=== PATIENT | female | born 2000 | race Caucasian/White ===

== ENCOUNTER 2024-05-18 05:01 | Inpatient (IN) | payer OTHER, SELFPAY ==
[2024-05-18] VITALS (70 sets, daily range): BP systolic 103–145; BP diastolic 52–72; PULSE 78–112; RESP 16–18; TEMP 36.7–37.7; O2SAT 84–100; BMI 34.2
[2024-05-18] MEDS: Lactated Ringers 1,000 ML 999 ML IV (05:20)
[2024-05-18 05:26] LABS: Absolute Lymphocyte Count 1.25 X10^3/uL (0.83-4.51); Absolute Neutrophil Count 16.8 X10^3/uL (2.0-7.7); Basophil# 0.07 X10^3/uL; Basophil% 0.4 % (0-1); Eosinophil# 0.02 X10^3/uL; Eosinophils% 0.1 % (0-5); Hematocrit 34.9 % (37-47); Hemoglobin 12.4 g/dL (12.0-15.0); Lymphocyte # 1.25 X10^3/ul (0.83-4.51); Lymphocyte % 6.3 % (19-41); Mean Corp Hgb Conc 35.5 g/dL (32-36); Mean Corpuscular Hgb 32.1 pg (27.0-32.0); Mean Corpuscular Volume 90.4 fL (81-99); Monocyte% 7.1 % (0-10); NRBC Flagged by Analyzer 0 % (0-5); Neutrophil # 16.84 X10^3/uL (2.7-7.7); Neutrophil % 84.9 % (47-70); Platelet Count 274 K/mm3 (150-450); RBC Distribution Width CV 13.2 % (11.6-14.6); Red Blood Count 3.86 M/mm3 (4.2-5.4); White Blood Count 19.8 K/mm3 (4.4-11.0)
--- NOTE | 2024-05-18 05:38 | PCM.HP.OB ---
HPI - General General Date of Admission: 05/18/24 Date of Service: 05/18/24 Chief Complaint: labor HPI Narrative ALAN CASTANEDA, is a 23 F who presents from home with track laying machine operator. Patient reports with 1 prior miscarriage. She is 41+ week gestational age based off of certain LMP. She states she started having ctx's about 2 days ago. Intact and no SROM. No bleeding. She offers no complaints other than ctx's. Her track laying machine operator is with her and states the patient was too uncomfortable at home, and the progress seemed to be slow. The track laying machine operator states she brought the patient in for an epidural and Pitocin. She felt the patient was 8 cm at home. PFSH PFSH Medical History no medical history Home Medications ?Medication ?Instructions ?Recorded ?Last Taken ?Type vit no.95-ferrous 1 tab PO DAILY 05/18/24 05/16/24 History fumarate 28 mg-folic acid 800 mcg tablet () Allergy/AdvReac Type Severity Reaction Status Date / Time No Known Allergies Allergy Verified 05/18/24 05:23 Social History Smoking Status: Former smoker History Elective abortions Hx Para 0 Spontaneous abortions Hx # Term Pregnancies Ectopic pregnancies Hx # Pregnancies Multiple births # of living children Addt'l History: Patient had care with a track laying machine operator. She had anemia screening. A blood glucose of 106. She had an ultrasound done at 23 week gestation in [place] and per the patient it was normal, but no record of this is seen. Her BP's were normal at visits up until her 41 week visit, and at that time SBP 140's. Unclear labor progress at home as record states patient was 8-9 cm at home before arrival, and patient is 7 cm on admission. NST FHR Rate Baby A Baseline: 130 Variability:: Moderate Accelerations:: 15 x 15 Decelerations:: None NST Reactive:: Yes FHR Category:: Category I Uterine Activity:: ctx q 2-4 min Vital Signs Vital Signs Vital Signs: 05/18/24 04:54 05/18/24 04:54 05/18/24 04:59 Temperature Temperature Source Pulse Rate 89 101 H Respiratory Rate Blood Pressure BP Systolic BP Diastolic Pulse Ox 98 05/18/24 04:59 05/18/24 05:20 05/18/24 05:20 Temperature Temperature Source Pulse Rate 86 Respiratory Rate Blood Pressure 110/66 BP Systolic 110 BP Diastolic 66 Pulse Ox 96 05/18/24 05:28 05/18/24 05:28 05/18/24 05:28 Temperature Temperature Source Temporal Pulse Rate 93 Respiratory Rate Blood Pressure 110/66 BP Systolic 110 BP Diastolic 66 Pulse Ox 05/18/24 05:28 05/18/24 05:28 05/18/24 05:28 Temperature 98.7 F Temperature Source Pulse Rate Respiratory Rate 18 Blood Pressure BP Systolic BP Diastolic Pulse Ox 98 Weight Weight: 187 lb 3.2 oz Body Mass Index (BMI) 34.2 Physical Exam Const alert and no apparent distress Constitutional Narrative: breathing through contractions HEENT normocephalic Resp normal respiratory effort GI soft to palpation, non-tender and non-distended GI Narrative: Shubham's performed Narrative: Cvx /-2, vertex, intact Labs Labs Labs: Blood Type Pending Antibody Screen Pending Hct 34.9 % (37-47) L Hgb 12.4 g/dL (12.0-15.0) Syphilis Total Ab Pending Rubella IgG Antibody Pending Hep Bs Antigen Pending Hepatitis C Antibody Pending HIV 1&2 Antibody Pending Assessment & Plan (1) 41 weeks gestation of : PLAN: Admit for routine intrapartum care. Epidural for pain control. Patient would like to wait for AROM until she is comfortable with epidural. Pitocin per protocol if needed, but will assess for progress with epidural and AROM first. GBS unknown. Pelvis adequate and EFW expected to be < 4500 grams based on Shubham's. Unable to accurately assess estimated weight with bedside TAUS given station of baby in pelvis and 41+ weeks. (2) Active labor at term: PLAN: Unknown labor progress. Patient was reported to be 8-9 cm at home. On arrival per RN and myself patient 7 cm. (3) No care in current : PLAN: panel sent. Patient had an ultrasound at 23 week gestation.
[2024-05-18 06:21] LABS: HIV - WCH Non-Reactive (Nonreactive); Rubella IgG Equiv (Nonreactive); Syphilis Antibodies Non-reactive
[2024-05-18] MEDS: fentaNYL-bupivacaine (epidural) 100 ML BAG EPIDURAL ×3 (06:21→17:25)
[2024-05-18] MEDS: Lactated Ringers 1,000 ML 200 ML IV ×3 (06:21→15:56)
[2024-05-18 06:34] LABS: Hepatitis B Surface Antigen Non-Reactive (Nonreactive); Hepatitis C Antibody Non-Reactive (Nonreactive)
--- NOTE | 2024-05-18 08:07 | PN.OBGYN_ITS ---
Subjective Subjective AROM for mec stained fluid /-2 soft and stretchy. Start Pit if ctx not adequate in an hour or two. Cat I Objective Data Objective Data Vital Signs: Vital Signs Temp Pulse Resp BP Pulse Ox 98.2 F 103 H 18 107/52 L 97 05/18/24 07:29 05/18/24 07:44 05/18/24 07:29 05/18/24 07:39 05/18/24 07:44 Weight: 84.912 kg Body Mass Index (BMI) 34.2 Intake & Output: Intake and Output for Last 24 Hours 05/16/24 05/17/24 05/18/24 23:59 23:59 23:59 Intake Total 1000 / 1000 Balance 1000 / 1000 Lab / Micro Data 05/18/24 05:05 Labs: Laboratory Results - last 24 hr 05/18/24 05:05: WBC 19.8 H, RBC 3.86 L, Hgb 12.4, Hct 34.9 L, MCV 90.4, MCH 32.1 H, MCHC 35.5, RDW Std Deviation 43.0, RDW Coeff of Joshua 13.2, Plt Count 274, MPV 9.0, Immature Gran % (Auto) 1.200 H, Neut % (Auto) 84.9 H, Lymph % (Auto) 6.3 L, [place] % (Auto) 7.1, Eos % (Auto) 0.1, Baso % (Auto) 0.4, Absolute Neuts (auto) 16.8 H, Absolute Lymphs (auto) 1.25, Nucleated RBC % 0, Syphilis Total Ab Non- reactive, Hep Bs Antigen Non-Reactive, Hepatitis C Antibody Non-Reactive, HIV 1&2 Antibody Non-Reactive, Rubella IgG Antibody Equiv, Blood Type A NEGATIVE, Antibody Screen NEGATIVE Micro: Microbiology 05/18/24 05:05 Genital vaginal Group B Streptococcus (PCR) - Final NST FHR Rate Baby A Baseline: 130 Variability:: Moderate Accelerations:: 15 x 15 Decelerations:: None NST Reactive:: Yes FHR Category:: Category I Uterine Activity:: q 7-8 Assessment & Plan (1) Active labor at term: (2) 41 weeks gestation of : PLAN: Plan Pit prn Epidural in place
--- NOTE | 2024-05-18 08:36 | NURSING ---
Initial blood type and RH factor obtained from mingle operator record, however blood test here came back A negatives
[2024-05-18] MEDS: Oxytocin 15 Units/NS 250ml 15 UNITS/250 ML IV.SOLN 2 UNITS IV (09:07)
--- NOTE | 2024-05-18 13:03 | PN.OBGYN_ITS ---
Subjective Subjective 8-9 cm Vtx well applied ctx q 2 Objective Data Objective Data Vital Signs: Vital Signs Temp Pulse Resp BP Pulse Ox 98.0 F 94 16 113/62 100 05/18/24 10:57 05/18/24 12:02 05/18/24 10:57 05/18/24 10:57 05/18/24 12:02 Weight: 84.912 kg Body Mass Index (BMI) 34.2 Intake & Output: Intake and Output for Last 24 Hours 05/16/24 05/17/24 05/18/24 23:59 23:59 23:59 Intake Total 2009 Output Total 350 / 350 Balance 1660 / 1660 Lab / Micro Data 05/18/24 05:05 Labs: Laboratory Results - last 24 hr 05/18/24 05:05: WBC 19.8 H, RBC 3.86 L, Hgb 12.4, Hct 34.9 L, MCV 90.4, MCH 32.1 H, MCHC 35.5, RDW Std Deviation 43.0, RDW Coeff of Joshua 13.2, Plt Count 274, MPV 9.0, Immature Gran % (Auto) 1.200 H, Neut % (Auto) 84.9 H, Lymph % (Auto) 6.3 L, [place] % (Auto) 7.1, Eos % (Auto) 0.1, Baso % (Auto) 0.4, Absolute Neuts (auto) 16.8 H, Absolute Lymphs (auto) 1.25, Nucleated RBC % 0, Syphilis Total Ab Non- reactive, Hep Bs Antigen Non-Reactive, Hepatitis C Antibody Non-Reactive, HIV 1&2 Antibody Non-Reactive, Rubella IgG Antibody Equiv, Blood Type A NEGATIVE, Antibody Screen NEGATIVE Micro: Microbiology 05/18/24 09:10 Urine, Clean Catch Chlamydia/Neisseria (PCR) - Final 05/18/24 05:05 Genital vaginal Group B Streptococcus (PCR) - Final Assessment & Plan (1) Active labor at term: (2) 41 weeks gestation of : PLAN: Plan Pitocin per protocol
--- NOTE | 2024-05-18 21:22 | OB.VAGDELI_ITS ---
Assessment & Plan (1) (spontaneous vaginal delivery): (2) Meconium in amniotic fluid: Maternal Data Information Final JOSSY: 05/01/24 Gestational age: 41+3 Vaginal Delivery Maternal Presentation Maternal Presentation: Active Labor Type of Induction: Pitocin and Amniotomy Medical Reason for Induction: Post term Vaginal Delivery Information Procedure Performed: Spontaneous Vaginal Delivery Surgeon/Practitioner: Karo Schaffer Date of Procedure: 05/18/24 Pre-Procedure Diagnosis: Labor Post-Procedure Diagnosis: Type of anesthesia: Epidural Estimated Blood Loss: 100 cc Time of Delivery: 21:10 Findings Description of procedure: Patient presents from home with a panel lay up worker. Prolonged labor. Epidural placed. Patient was AROM for mec fluid at 6-7 cm. Pitocin was started. She slowly progressed to complete. Began pushing and pushed for 2 hours. Delivered OA. The anterior and posterior should delivered with gentle traction. The had no tone or respiratory effort on delivery. The cord was immediately clamped and cut. The infant was passed to the warmer immediately. Cord gas and cord blood were collected. The placental delivered spontaneously. No laceration needed repaired. All sponge and needle counts were correct Presentation: Vertex Amniotic Membrane Rupture Type: Artificial Amniotic Fluid Description: Thick meconium Placental Delivery Description: Spontaneous Placenta Disposition: [facility] Cord Vessel Description: 3 Vessels Cord Entanglement: None Cord Gases: ABG and VBG A Gender: Female (1 minute): 3 (5 minute): 8 Delayed Cord Clamping: No Orthotist Prosthetist submarine advisory team watch officer: No Post Vaginal Deli Medications given after delivery: IV Pitocin Episiotomy Description: None Laceration: None Complication Complications: No
[2024-05-18] MEDS: Oxytocin 15 Units/NS 250ml 15 UNITS/250 ML IV.SOLN 83 UNITS IV (21:42)
[2024-05-19 03:45] VITALS: BP 125/75; PULSE 102; RESP 16; O2SAT 98
[2024-05-19 07:40] VITALS: BP 121/68; PULSE 81; RESP 16; TEMP 37.4; O2SAT 98
--- NOTE | 2024-05-19 08:17 | PCM.PN.OB ---
Subjective Subjective Doing well. Ambulating and voiding without difficulty. Mild lochia. Breast feeding. Objective Data Objective Data Vital Signs: Vital Signs Temp Pulse Resp BP Pulse Ox O2 Del Method 99.3 F H 81 16 121/68 H 98 Room Air 05/19/24 07:40 05/19/24 07:40 05/19/24 07:40 05/19/24 07:40 05/19/24 07:40 05/19/24 07:40 Oxygen Delivery Method Room Air Weight: 84.912 kg Body Mass Index (BMI) 34.2 Intake & Output: Intake and Output for Last 24 Hours 05/17/24 05/18/24 05/19/24 23:59 23:59 23:59 Intake Total 4206.70 / 4206.70 250 / 250 Output Total 450 / 450 600 / 600 Balance 3756.70 / 3756.70 -350 / -350 Lab / Micro Data 05/18/24 05:05 Labs: Laboratory Results - last 24 hr 05/18/24 22:22: Screen NEGATIVE, Baby's Blood Type A POSITIVE, Baby's LAWANDA NEGATIVE Micro: Microbiology 05/18/24 09:10 Urine, Clean Catch Chlamydia/Neisseria (PCR) - Final 05/18/24 05:05 Genital vaginal Group B Streptococcus (PCR) - Final ROS Constitutional Constitutional: Denies headache(s) Cardiovascular Cardiovascular: Denies chest pain or dyspnea Gastrointestinal Gastrointestinal: Denies nausea or vomiting Genitourinary Genitourinary: Denies dysuria Physical Exam Const alert, oriented x3 and no apparent distress General Appearance: cooperative and comfortable Eyes PERRL and EOMs intact bilaterally Resp normal respiratory effort GI soft to palpation and non-tender Uterus Palpation: uterus fundus firm ( below umbilicus) Extremity normal to inspection and full ROM Neuro oriented x3 and CN's II-XII intact bilaterally Psych mental status grossly normal Assessment & Plan (1) (spontaneous vaginal delivery): (2) Meconium in amniotic fluid: PLAN: Plan Routine care
[2024-05-19] MEDS: 0.9% Saline Lock 10 ML Syringe IV (09:43)
[2024-05-19] MEDS: Rho(D) Immune Globulin 300 MCG (1500 Unit) Syringe IV (09:43)
[2024-05-19 13:45] VITALS: BP 122/75; PULSE 78; RESP 16; TEMP 36.3; O2SAT 98
[2024-05-19 17:20] VITALS: BP 119/67; PULSE 88; RESP 16; TEMP 36.8; O2SAT 98
[2024-05-19 20:55] VITALS: BP 114/89; PULSE 76; RESP 16; TEMP 36.7; O2SAT 97
[2024-05-20 02:16] VITALS: BP 122/65; PULSE 71; RESP 14; TEMP 36.5
[2024-05-20 07:30] VITALS: BP 128/95; PULSE 79; RESP 16; TEMP 36.5; O2SAT 98
--- NOTE | 2024-05-20 08:18 | PCM.PN.OB ---
Subjective Subjective Doing well. Ambulating and voiding without difficulty. Mild lochia. Breast feeding. Objective Data Objective Data Vital Signs: Vital Signs Temp Pulse Resp BP Pulse Ox O2 Del Method 97.7 F L 79 16 128/95 H 98 Room Air 05/20/24 07:30 05/20/24 07:30 05/20/24 07:30 05/20/24 07:30 05/20/24 07:30 05/20/24 07:30 Oxygen Delivery Method Room Air Weight: 84.912 kg Body Mass Index (BMI) 34.2 Intake & Output: Intake and Output for Last 24 Hours 05/18/24 05/19/24 05/20/24 23:59 23:59 23:59 Intake Total 4206.70 / 4206.70 250 / 250 Output Total 450 / 450 600 / 600 Balance 3756.70 / 3756.70 -350 / -350 Lab / Micro Data 05/18/24 05:05 Micro: Microbiology 05/18/24 09:10 Urine, Clean Catch Chlamydia/Neisseria (PCR) - Final 05/18/24 05:05 Genital vaginal Group B Streptococcus (PCR) - Final ROS Constitutional Constitutional: Denies headache(s) Cardiovascular Cardiovascular: Denies chest pain or dyspnea Gastrointestinal Gastrointestinal: Denies nausea or vomiting Genitourinary Genitourinary: Denies dysuria Physical Exam Const alert, oriented x3 and no apparent distress General Appearance: cooperative and comfortable Eyes PERRL and EOMs intact bilaterally Resp normal respiratory effort GI soft to palpation and non-tender Uterus Palpation: uterus fundus firm ( below umbilicus) Extremity normal to inspection and full ROM Neuro oriented x3 and CN's II-XII intact bilaterally Psych mental status grossly normal Assessment & Plan (1) (spontaneous vaginal delivery): PLAN: Plan Discharge home
--- NOTE | 2024-05-20 08:23 | DS.PCM_ITS ---
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 Labor augmentation. with thick mec. Routine Physical Exam Const alert and no apparent distress Narrative: Fundus firm, below umbilicus. Weight / BMI Weight Weight: 84.912 kg Body Mass Index (BMI) 34.2 ABG / Lab / Microbiology Data 05/18/24 05:05 Microbiology: Microbiology 05/18/24 09:10 Urine, Clean Catch Chlamydia/Neisseria (PCR) - Final 05/18/24 05:05 Genital vaginal Group B Streptococcus (PCR) - Final D/C Instructions May resume sexual activity in: 6 weeks DC O2, CPAP, BIPAP Needs Home O2 Discharge instructions: No Please Follow Up With: Thuy Parsons MD When: Follow up with our office in 1-2 and 6 weeks or as needed. [phone] Meaningful Use Info Meaningful Use Meaningful Use Diagnoses (Choose all that apply): None applicable Ischemic Stroke Statin Dosing Therapy Reference: STATIN DOSE THERAPY REFERENCE: * Patients > 75 years receive moderate or high dose statin therapy. * Patients 75 years or YOUNGER should receive HIGH intensity statin dose unless contraindicated. You will be required to document reason for non-treatment if statin daily dose does not meet guidelines. HIGH DOSE STATIN THERAPY DAILY Atorvastatin > than or = to 40 mg Rosuvastatin > than or = to 20 mg Amlodipine + Atorvastatin > than or = to 2.5/40 mg Ezetimibe + Simvastatin 10/80 mg Simvastatin 80mg Discharge Plan Admission Admit Date/Time: 05/18/24 05:01 Primary Reason for Your Visit: labor Attending Provider: Karo Schaffer Primary Care Provider: Jessica Patel Primary Discharge Orders/Prescriptions Prescriptions: Continued PNV cmb#95-ferrous fumarate-FA [] 28 mg iron- 800 mcg tablet 1 tab PO DAILY Referrals / Follow Up: Care Physician,Jessica Primary [Primary Care Provider] - Disposition Disposition (needs filled in before D/C Order can be placed): Home, Self Care
== END 2024-05-20 10:10 | disposition home or self-care (01) | DRG 807 ==
LOC: WPOUT 05:04 → WP 05:11
PROVIDERS: Obstetrics & Gynecology; Admitting Provider Obstetrics & Gynecology; Referring Provider Obstetrics & Gynecology; Visit Provider Obstetrics & Gynecology
DX: O48.0 Post-term pregnancy (principal); Z37.0 Single live birth; O77.0 Labor and delivery complicated by meconium in amniotic fluid; Z87.891 Personal history of nicotine dependence; Z3A.41 41 weeks gestation of pregnancy
CPT/HCPCS: 59025; 59050; 85025; 85461; 86703; 86762; 86780; 86803; 86850; 86900; 86901; 87081; 87340; 87491; 87591; 87653; 90384; A4216; J2790; J2791